=== PATIENT | male | born 1995 | race Caucasian/White ===

== ENCOUNTER 2024-01-29 02:07 | Emergency (ER) | payer OTHER ==
[~2024-01-29] VITALS: Ht 180.3 cm; Wt 67.9 kg
[2024-01-29 02:09] VITALS: O2SAT 100
[2024-01-29 02:36] VITALS: BP 142/77; PULSE 79; RESP 18; TEMP 98.6; O2SAT 98
[2024-01-29] MEDS ORDERED: KETOROLAC 15MG/ML VIAL IM ONE (03:30)
[2024-01-29] MEDS ORDERED: IBUP-2029 MT (03:35)
[2024-01-29] MEDS ORDERED: AMOX1TAB16 MT (03:35)
== END 2024-01-29 04:44 | disposition left against medical advice (07) ==
LOC: ER 02:07
DX: K04.7 Periapical abscess without sinus (principal)
CPT/HCPCS: 99283